=== PATIENT | female | born 1955 | race Two or more races ===

== ENCOUNTER 2018-09-19 06:56 | Day surgery (SDC) | payer OTHER ==
[~2018-09-19] VITALS: Ht 162.6 cm; Wt 95.2 kg
[2018-09-19 07:24] VITALS: BP 139/78
[2018-09-19 13:05] VITALS: BP 161/88
== END 2018-09-19 12:40 | disposition home or self-care (01) ==
LOC: DS 06:56 → OR 09:00 → DS 09:00
PROVIDERS: Neuromusculoskeletal Medicine, Sports Medicine
PROC: 0LN60ZZ Release Left Lower Arm and Wrist Tendon, Open Approach (ICD-10-PCS; principal; 2018-09-19 09:00)
DX: M65.4 Radial styloid tenosynovitis [de Quervain] (principal); I10 Essential (primary) hypertension; E66.9 Obesity, unspecified
CPT/HCPCS: J2001; J2250; J2704; J3010; J3490; J7120; Q0092